=== PATIENT | male | born 1990 | race American Indian/Alaskan Native ===

== ENCOUNTER 2021-10-13 00:34 | Emergency (ER) | payer OTHER ==
[2021-10-13 01:09] LABS: Basophils % (Auto) 0.7 % (0.0-1.8); Eosinophils # (Auto) 0.2 K/mm3 (0.0-0.4); Eosinophils % (Auto) 3.6 % (0.0-4.3); Hematocrit 42.6 % (35.5-45.6); Hemoglobin 13.5 gm/dl (11.8-15.2); Lymphocytes # (Auto) 3.5 K/mm3 (1.2-5.4); Lymphocytes % (Auto) 53.5 % (13.4-35.0); Mean Corpuscular HGB Conc 32 % (32-34); Mean Corpuscular Volume 81 fl (84-94); Monocytes # (Auto) 0.4 K/mm3 (0.0-0.8); Monocytes % (Auto) 6.6 % (0.0-7.3); Platelet Count 149 K/mm3 (140-440); Red Blood Count 5.25 M/mm3 (3.65-5.03)
[2021-10-13] MEDS ORDERED: INSULIN REGULAR, HUMAN 100 UNITS/1 ML IV ONE (01:16)
[2021-10-13] MEDS ORDERED: SODIUM CHLORIDE 0.9% 1000 ML 1,000 ML IV ONE ×2 (01:17→01:18)
[2021-10-13] MEDS ORDERED: INSULIN REGULAR, HUMAN 100 UNITS/1 ML SUB-Q ONE (01:19)
[2021-10-13 02:24] LABS: Alanine Aminotransferase 84 units/L (7-56); Albumin 4.3 g/dL (3.9-5); BUN/Creatinine Ratio 12; Blood Urea Nitrogen 16 mg/dL (9-20); Calcium 8.6 mg/dL (8.4-10.2); Hemolysis Index 34
--- NOTE | 2021-10-13 02:57 | Emergency Department Report ---
ED General Adult HPI - General Chief complaint: Hyperglycemia Stated complaint: HIGH BLOOD SUGAR Time Seen by Provider: 10/13/21 02:49 Source: patient Mode of arrival: Ambulatory Limitations: No Limitations - History of Present Illness Initial comments: 30-year-old male with a history of type 2 diabetes brought in by father with elevated blood sugar that was noticed yesterday evening. Patient denies any symptoms at this point. According to dad the glucometer at home just read the eye at that point they decided to come to the ER for evaluation. No other modifying or associated factors reported. Severity scale (0 -10): 0 - Related Data Allergies Allergy/AdvReac Type Severity Reaction Status Date / Time sulfacetamide AdvReac Mild Swelling Verified 10/13/21 00:48 [From Sulfamide] ED Review of Systems ROS: Stated complaint: HIGH BLOOD SUGAR Other details as noted in HPI Comment: All other systems reviewed and negative Endocrine: other (Elevated blood sugar) ED Past Medical Hx - Past Medical History Previous Medical History?: Yes Hx Diabetes: Yes - Surgical History Past Surgical History?: No - Social History Smoking Status: Current Some Day Smoker ED Physical Exam - General Limitations: No Limitations General appearance: alert, in no apparent distress - Head Head exam: Present: normal inspection - Eye Eye exam: Present: normal appearance Pupils: Present: normal accommodation - ENT ENT exam: Present: normal exam, normal orophraynx, mucous membranes dry - Neck Neck exam: Present: normal inspection, full ROM. Absent: tenderness - Respiratory Respiratory exam: Present: normal lung sounds bilaterally. Absent: respiratory distress, accessory muscle use - Cardiovascular Cardiovascular Exam: Present: regular rate, normal rhythm, normal heart sounds - GI/Abdominal GI/Abdominal exam: Present: soft, normal bowel sounds. Absent: distended, tenderness - Extremities Exam Extremities exam: Present: normal inspection, normal capillary refill. Absent: pedal edema - Back Exam Back exam: Present: normal inspection. Absent: tenderness - Neurological Exam Neurological exam: Present: alert, oriented X3 - Psychiatric Psychiatric exam: Present: normal affect, normal mood - Skin Skin exam: Present: warm, normal color ED Course Vital Signs 10/13/21 10/13/21 10/13/21 00:43 01:11 03:36 Temperature 98.3 F Pulse Rate 72 69 70 Respiratory 19 20 15 Rate Blood Pressure 125/88 122/76 120/65 [Right] O2 Sat by Pulse 100 98 97 Oximetry ED Medical Decision Making - Lab Data Result diagrams: 10/13/21 01:01 10/13/21 01:01 - Medical Decision Making Here with elevated blood sugar with no symptoms--in patient with history of type 2 diabetes this is likely hypoglycemia so we will go ahead and start aggressive IV fluid normal saline 2 L, insulin 10 units IV and 10 units subcu, and will order routine labs including CBC, CMP and UA for any infectious process or electrolyte abnormality as a cause. Lab reviewed and noted blood sugar to be 561, with slightly elevated liver enzyme AST at 68/82 ALT with normal anion gap of 16 and sodium of 130 mm/dl-this is consistent with dehydration and hyperglycemia--will recheck blood sugar after patient is well hydrated. Blood sugar now improved to 85 mg/dL--patient given crackers and juice and reassured and discharged home to continue to take his medication as prescribed and close follow-up. Critical care attestation.: If time is entered above; I have spent that time in minutes in the direct care of this critically ill patient, excluding procedure time. ED Disposition Clinical Impression: Hyperglycemia due to type 2 diabetes mellitus Qualifiers: Diabetes mellitus terminal carman insulin use: unspecified terminal carman insulin use status Qualified Code(s): E11.65 - Type 2 diabetes mellitus with hyperglycemia Disposition: 01 HOME / SELF CARE / HOMELESS Is pt being admited?: No Does the pt Need Aspirin: No Condition: Stable Instructions: Hyperglycemia, [id number], Type 2 Diabetes Mellitus, Self Care, Adult, [id number], Diabetes Mellitus Type 2 in Adults (ED) Additional Instructions: It is very important that you take your blood sugar medication as prescribed to continue to help your symptoms Increase your daily fluid to help your hydration Call and follow-up with your primary doctor in the next 3 to 5 days for progress Please do not hesitate to call or return to emergency if your symptoms worsen Referrals: PRIMARY MD ALIX [Primary Care Provider] - 3-5 Days Time of Disposition: 04:00
[2021-10-13 04:15] VITALS: BP 122/70
== END 2021-10-13 04:15 | disposition home or self-care (01) ==
LOC: ED 00:34
DX: E11.65 Type 2 diabetes mellitus with hyperglycemia (principal); F17.200 Nicotine dependence, unspecified, uncomplicated; Z88.2 Allergy status to sulfonamides; Z79.899 Other long term (current) drug therapy
CPT/HCPCS: 36415; 80048; 80053; 82962; 85025; 96361; 96372; 96374; 99283; J7030; Q9967; J1815